=== PATIENT | male | born 1995 | race Caucasian/White ===

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

== ENCOUNTER → 2020-09-26 | Outpatient (CLI) | payer BC, OTHER | LOC: EDSEX 10:52 → HEART 5 10:52 | DX: R00.0 Tachycardia, unspecified (principal) ==